=== PATIENT | male | born 1955 | race Caucasian/White ===

== ENCOUNTER 2019-04-26 23:49 | Observation (INO) ==
[2019-04-27] MEDS ORDERED: ASPIRIN 325 MG TABLET PO STA (00:40)
[2019-04-27] MEDS ORDERED: ENOXAPARIN 100 MG/ML SYRINGE SUBCUT STA (00:41)
[2019-04-27 01:28] LABS: Basophils # 0.1 10*3/uL (0.0-0.2); Basophils % 1.1 % (0.0-0.8); Eosinophils # 0.4 10*3/uL (0.0-0.87); Eosinophils % 4.3 % (0.00-10.9); Hematocrit 48.5 VOL% (42.0-52.0); Hemoglobin 16.6 GM/DL (14.0-18.0); Immature Granulocytes % 0.5 %; Immature Granulocytes Absolute 0.04 #; Lymphocytes # 2.3 10*3/uL (1.4-4.0); Lymphocytes % 28.6 % (21.2-54.2); Mean Corpuscular HGB Conc 34.2 GM/DL (32-36); Mean Platelet Volume 10.3 FL (9.6-12.0); Monocytes % 8.9 % (1.7-12.7); Neutrophils % 56.6 % (38.7-73.9); Platelet Count 138 T/CUMM (130-400); Red Blood Count 5.27 MC/CUMM (3.8-5.5); Red Cell Distribution Width 13.2 % (9.3-17.3); White Blood Count 8.1 T/CUMM (4-12)
[2019-04-27 01:43] LABS: Alanine Aminotransferase 38 U/L (16-61); Albumin 3.7 G/DL (3.4-5.0); Alkaline Phosphatase 98 U/L (45-117); Aspartate Amino Transferase 24 U/L (0-37); Blood Urea Nitrogen 17 MG/DL (7-18); Calcium 9.7 MG/DL (8.5-10.1); Glucose 101 MG/DL (74-106); Osmolality,Calculated 287.8 MOS/KG (273-304); Total Protein 6.9 G/DL (6.4-8.3)
[2019-04-27 01:54] LABS: PT Patient Result 10.8 SECS; Partial Thromboplastin Time 27.7 SECS (0-40)
[2019-04-27 01:55] LABS: Apearance,Urine CLEAR (Clear); Bilirubin,Urine Negative (Negative); Blood, Urine Negative (Negative); Glucose,Urine (UA) Negative (Negative); Ketones,Urine Negative (Negative); Mucus,Urine Occasional /LPF (Occasional); Nitrite,Urine Negative (Negative); Protein,Urine Negative; RBC,Urine 1 /HPF (0-4); Squamous Epithelial Cell,Urine Occasional /HPF (0-10); Urine Color Yellow (Yellow); Urine Specific Gravity 1.014 (1.001-1.035); Urine Urobilinogen < 2.0 EU/DL (0.2-1.0); WBC,Urine 2 /HPF (0-6)
[2019-04-27 02:12] LABS: Barbiturates Screen,Urine Negative (Negative); Benzodiazepines Screen,Urine Negative (Negative); Cannabinoid Screen,Urine Negative (Negative); Opiate Screen,Urine Negative (Negative); Phencyclidine Screen,Urine Negative (Negative)
[2019-04-27 05:24] LABS: Risk Ratio 3.94; VLDL CHOLESTEROL 23.2 MG/DL
[2019-04-27] MEDS ORDERED: MORPHINE 4 MG/1 ML VIAL IV PRN (06:04)
[2019-04-27] MEDS ORDERED: ACETAMINOPHEN 325 MG TABLET PO PRN (06:04)
[2019-04-27] MEDS ORDERED: ONDANSETRON 4 MG/2 ML VIAL IV PRN (06:04)
[2019-04-27] MEDS: PANTOPRAZOLE 40 MG TABLET PO SCH (08:42)
[2019-04-27] MEDS: ASPIRIN EC 325 MG TABLET PO SCH (08:42)
[2019-04-27] MEDS ORDERED: LORazepam 2 MG/1 ML VIAL IV ONE (12:29)
[2019-04-27] MEDS ORDERED: methylPREDNISolone 4 MG TABLET PO SCH ×2 (18:30→20:00)
[2019-04-27] MEDS ORDERED: methylPREDNISolone SOD SUC 40 MG/1 ML VIAL IV SCH (18:30)
[2019-04-27] MEDS ORDERED: ATORVASTATIN 40 MG TABLET PO SCH (21:00)
[2019-04-27] MEDS ORDERED: methylPREDNISolone SOD SUC 40 MG/1 ML VIAL IV ONE (21:30)
[2019-04-27] MEDS: ACYCLOVIR 200 MG CAPSULE PO SCH (21:34)
[2019-04-28] MEDS: ACYCLOVIR 200 MG CAPSULE PO SCH ×2 (05:55→09:20)
[2019-04-28] MEDS ORDERED: methylPREDNISolone 4 MG TABLET PO SCH (08:00)
[2019-04-28] MEDS ORDERED: LISINOPRIL/HCTZ 20-12.5 MG TABLET PO SCH (09:00)
[2019-04-28] MEDS ORDERED: CLOPIDOGREL 75 MG TABLET PO SCH (09:00)
[2019-04-28] MEDS ORDERED: POLYVINYL ALCOHOL 1.4% OPH SOLN 15 ML BOTTLE LEFT EYE SCH (09:00)
[2019-04-28] MEDS: ASPIRIN EC 325 MG TABLET PO SCH (09:21)
[2019-04-28] MEDS: PANTOPRAZOLE 40 MG TABLET PO SCH (09:21)
[2019-04-28 10:05] VITALS: BP 141/89
== END 2019-04-28 12:20 | disposition home health service (06) ==
LOC: N.ED 23:49 → N.EDINP 23:49 → SUATTDRO 04-27 02:00 → N.4E 04-27 02:31
PROVIDERS: ADMIT Internal Medicine; ATTEND Family Medicine